=== PATIENT | female | born 1935 | race African-American/Black ===

== ENCOUNTER 2018-11-11 23:54 | Emergency (ER) | payer MEDICARE, BC ==
--- NOTE | 2018-11-12 01:34 | ER Document Report ---
ED Fall - General Chief Complaint: Fall Stated Complaint: FALL, LEFT SIDE PAIN Time Seen by Provider: 11/12/18 01:01 Primary Care Provider: REGINALD HANSON MD [Primary Care Provider] - Follow up as needed Mode of Arrival: Medic Information source: Patient TRAVEL OUTSIDE OF THE [place] IN LAST 30 DAYS: No - HPI Notes: Patient states she was sitting on a shower chair in the shower. She states she went to get up in the shower chair slid out from underneath her. She landed on her left hip. She complains of pain on the left hip and left lateral leg. This pain is constant. Is worse with movement and better with rest. It does radiate down the left leg. It is a moderate to mild throbbing sensation. She denies any other significant injuries. She has no loss of consciousness or head injury. - Related data Allergies/Adverse Reactions: No Known Allergies Allergy (Unverified 09/03/10 11:36) Past Medical History - General Information source: Patient - Social History Smoking Status: Current Every Day Smoker Chew tobacco use (# tins/day): No Frequency of alcohol use: None Drug Abuse: None Family History: Reviewed & Not Pertinent Patient has suicidal ideation: No Patient has homicidal ideation: No - Past Medical History Cardiac Medical History: Pulmonary Medical History: Neurological Medical History: GI Medical History: Denies: Hx Hiatal Hernia Musculoskeletal Medical History: Infectious Medical History: Past Surgical History: Denies: Hx Hysterectomy, Hx Mastectomy, Hx Open Heart Surgery Review of Systems - Review of Systems Constitutional: denies: Chills, Fever Cardiovascular: denies: Chest pain, Palpitations Respiratory: denies: Cough, Short of breath Gastrointestinal: denies: Abdominal pain, Diarrhea, Vomiting -: Yes All other systems reviewed and negative Physical Exam - Vital signs Vitals: Temp Pulse Resp BP Pulse Ox 98.7 F 85 16 146/70 H 100 11/11/18 23:59 11/11/18 23:59 11/11/18 23:59 11/11/18 23:59 11/11/18 23:59 Interpretation: Normal - General General appearance: Appears well, Alert - HEENT Head: Normocephalic, Atraumatic Eyes: Normal Pupils: PERRL - Respiratory Respiratory status: No respiratory distress Chest status: Nontender Breath sounds: Normal Chest palpation: Normal - Cardiovascular Rhythm: Regular Heart sounds: Normal auscultation Murmur: No - Abdominal Inspection: Normal Distension: No distension Bowel sounds: Normal Tenderness: Nontender Organomegaly: No organomegaly - Back Back: Normal, Nontender - Extremities General upper extremity: Normal inspection, Nontender, Normal color, Normal ROM, Normal temperature General lower extremity: Tender - Patient has some mild tenderness diffusely to palpation of the left lateral hip. She has some limited range of motion secondary to pain of the left hip. Left knee also has some swelling and deformity on the medial aspect. She has painful range of motion of the left knee., Normal color, Normal temperature. No: Kendall's sign - Neurological Neuro grossly intact: Yes Cognition: Normal Orientation: AAOx4 Lyric Coma Scale Eye Opening: Spontaneous Lyric Coma Scale Verbal: Oriented [place] Coma Scale Motor: Obeys Commands [place] Coma Scale Total: 15 Speech: Normal Motor strength normal: LUE, RUE, LLE, RLE Sensory: Normal - Psychological Associated symptoms: Normal affect, Normal mood - Skin Skin Temperature: Warm Skin Moisture: Dry Skin Color: Other - Patient has some tender slightly indurated erythema of the left lower extremity just superior to the ankle. It is consistent with possible early cellulitis. Course - Re-evaluation Re-evalutation: 11/12/18 03:46 Patient fell today in the shower. X-rays of the hip show no evidence of fracture. At this time a x-ray of the left knee is still pending. - Vital Signs Vital signs: Temp Pulse Resp BP Pulse Ox 98.7 F 85 16 146/70 H 100 11/11/18 23:59 11/11/18 23:59 11/11/18 23:59 11/11/18 23:59 11/11/18 23:59 - Diagnostic Test Radiology reviewed: Image reviewed, Reports reviewed Radiology results interpreted by me: 11/12/18 03:47 Hip X-Ray 11/12/18 01:02 IMPRESSION: Osteopenia. No acute osseous abnormality copyright 2011 [employer]- All Rights Reserved Lumbar Spine X-Ray 11/12/18 01:02 IMPRESSION: No acute fracture or subluxation. Discharge - Discharge Clinical Impression: Contusion of left hip Qualifiers: Encounter type: initial encounter Qualified Code(s): S70.02XA - Contusion of left hip, initial encounter Condition: Stable Disposition: HOME, SELF-CARE Instructions: Contusion ([facility]) Additional Instructions: Please call your primary doctor as soon as possible to arrange follow-up Prescriptions: Cephalexin Monohydrate [Keflex 500 mg Capsule] 500 mg PO Q6H 5 Days capsule Referrals: REGINALD HANSON MD [Primary Care Provider] - Follow up as needed
--- NOTE | 2018-11-12 02:04 | RADIOLOGY REPORT (SQ) ---
EXAM DESCRIPTION: XR HIP 2 OR MORE VIEWS COMPLETED DATE/TME: 11/12/2018 01:02 CLINICAL HISTORY: 83 years, Female, fall/pain COMPARISON: None. NUMBER OF VIEWS: 2 TECHNIQUE: AP pelvis single view left hip LIMITATIONS: None. FINDINGS: Osteopenia. No radiographic evidence for acute fracture or dislocation. Correlate with any history of inability to ambulate. Degenerative change lumbar spine IMPRESSION: Osteopenia. No acute osseous abnormality copyright 2010 [employer]- All Rights Reserved
--- NOTE | 2018-11-12 02:05 | RADIOLOGY REPORT (SQ) ---
CLINICAL HISTORY: fall/pain COMPARISON: None. TECHNIQUE: XR LUMBAR SPINE 2-3 VIEWS 11/12/2018 1:02 AM CDT FINDINGS: There is no acute fracture. There is grade 1 anterolisthesis of L4 on L5. 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 There are severe degenerative changes of essentially all of the discs. There is relative sparing of the L4-5 disc. Vertebral body heights are preserved. Soft tissues are unremarkable. IMPRESSION: No acute fracture or subluxation.
--- NOTE | 2018-11-12 04:39 | RADIOLOGY REPORT (SQ) ---
EXAM DESCRIPTION: XR KNEE 3 VIEWS COMPLETED DATE/TME: 11/12/2018 03:33 CLINICAL HISTORY: 83 years, Female, fall/pain COMPARISON: None. NUMBER OF VIEWS: 2 TECHNIQUE: 2 views left knee LIMITATIONS: None. FINDINGS: Osteopenia. Advanced tricompartmental degenerative change. Vascular calcifications. Negative for acute fracture or dislocation. IMPRESSION: No acute osseous abnormality copyright 2010 [employer]- All Rights Reserved
[2018-11-12 05:45] VITALS: BP 130/42
== END 2018-11-12 05:29 | disposition home or self-care (01) ==
LOC: ER 23:54
DX: S70.02XA Contusion of left hip, initial encounter (principal); M25.552 Pain in left hip; M79.605 Pain in left leg; W18.2XXA Fall in (into) shower or empty bathtub, initial encounter; L53.9 Erythematous condition, unspecified; M25.462 Effusion, left knee; F17.200 Nicotine dependence, unspecified, uncomplicated; M85.88 Other specified disorders of bone density and structure, other site
CPT/HCPCS: 72100; 99283